=== PATIENT | male | born 1950 | race Native Hawaiian/Other Pacific Islander ===

== ENCOUNTER 2019-01-27 15:34 | Observation (INO) | payer OTHER ==
[2019-01-27] VITALS (8 sets, daily range): BP systolic 110–229; BP diastolic 70–123; TEMP 97.8–99.1
[~2019-01-27] VITALS: Ht 160 cm; Wt 70.9 kg
[2019-01-27 16:21] LABS: PLATELET COUNT 252 K/uL (142-355); POTASSIUM 3.7 mmol/L (3.6-5.2); SODIUM 139 mmol/L (136-145)
[2019-01-28] VITALS: BP 110/70; TEMP 98
[2019-01-28 00:23] VITALS: BP 165/81; TEMP 97.8; Ht 160 cm; Wt 70.9 kg
[2019-01-28 03:57] VITALS: BP 138/75; TEMP 97.5
[2019-01-28 04:52] LABS: PLATELET COUNT 187 K/uL (142-355)
[2019-01-28 05:20] LABS: POTASSIUM 3.7 mmol/L (3.6-5.2)
[2019-01-28 08:00] VITALS: BP 144/83; TEMP 97.7
== END 2019-01-28 10:48 | disposition home or self-care (01) ==
LOC: ED 15:34 → MED/SURG 18:00
PROVIDERS: Internal Medicine; ADMIT Family Medicine
DX: R07.89 Other chest pain (principal); R06.09 Other forms of dyspnea; I11.0 Hypertensive heart disease with heart failure
CPT/HCPCS: 36415; 80053; 81000; 82550; 84443; 84484; 85027; 85379; 93005; 94760; 96365; 96366; 96372; 96374; 99220; 99284; G0378; J0360; J1650

== ENCOUNTER 2021-12-13 19:02 | Observation (INO) | payer OTHER ==
[~2021-12-13] VITALS: Ht 160 cm; Wt 81.6 kg
[2021-12-13] VITALS (7 sets, daily range): BP systolic 118–148; BP diastolic 70–84; TEMP 98.7
[~2021-12-13 19:02] MED LIST: CARV12.5 PO; GLIPIZIDE 2.5 MG PO; ROSUVASTATIN CA10 MG PO
[2021-12-13 19:48] LABS: PLATELET COUNT 214 K/uL (142-355)
[2021-12-13 20:02] LABS: POTASSIUM 4.3 mmol/L (3.6-5.2)
--- NOTE | 2021-12-14 00:12 | NUR ---
PATIENT ADMITTED TO ROOM 1108 VIA WHEELCHAIR. PATIENT ABLE TO AMBULATE TO BED. DIAGNOSIS OF FAILURE TO THRIVE, WEAKNESS AND HEAT EXPOSURE. PATIENT DENIES DIZZINESS OR LIGHT HEADNESS, DOES AGREE HE IS WEAKER THAN USUAL. STONG EQUAL HAND SLUBBER TENDER, STRONG EQUAL PEDAL PUSHES. SALINE LOCK INTACT AND PATENT TO TOP OF LEFT HAND, NO SIGN OF INFILTRATED. CALL LIGHT WITHIN REACH.
[2021-12-14 00:35] VITALS: BP 132/81; TEMP 97.9; Ht 160 cm; Wt 81.6 kg
--- NOTE | 2021-12-14 02:30 | NUR ---
PATIENT RESTING QUIETLY, AWAKENS EASILY, DENIES COMPLAINTS. IVF NORMAL SALINE INFUSING TO TOP OF LEFT HAND WITH NO SIGNS OF INFILTRATE. CALL LIGHT WITH IN REACH.
[2021-12-14 04:00] VITALS: BP 96/62; TEMP 97.7
[2021-12-14 05:29] LABS: PLATELET COUNT 169 K/uL (142-355)
[2021-12-14 05:42] LABS: POTASSIUM 4.6 mmol/L (3.6-5.2)
--- NOTE | 2021-12-14 05:44 | NUR ---
PATIENT RESTING QUIETLY, EASILY AWAKENS, DENIES COMPLAINTS. IVF INFUSING TO LEFT HAND WITH NO SIGN OF INIFILTRATE. CALL LIGHT WITHIN REACH.
--- NOTE | 2021-12-14 07:45 | NUR ---
AM ASSESSMENT COMPLETED AT THIS TIME. PT ALERT AND ORIENTED X4. PT DENIES ANY C/O AT THIS TIME. S1/S2 HEARD, LUNG SOUNDS CLEAR THORUGH OUT BILAT. NO EDEMA NOTED. PT AMBULATED TO AND FROM BR. NS INFUSING AT 25 ML/HR AT THIS TIME WIHTOUT DIFFICULTY. BED LOW AND LOCKED, CALL LIGHT WITHIN REACH.
[2021-12-14 08:00] VITALS: BP 103/72; TEMP 97.6
--- NOTE | 2021-12-14 11:21 | NUR ---
Patient voiced an interest in being placed in LTC or either assisted living. Deburrer spoke with [facility] and they are private pay and the monthly cost is 3,000.00 to 3,200.00 dollars. Deburrer also spoke with Felicita Dany [phone] at [facility] and she said that she had two rooms and that the cost is 2,460.00 per month, but if the patient would come by on Saturday December 18, 2021 she would help him fill out a form to get assistance. She said if he moved in and paid the monthly amount if he qualified for the assistance that he would be credited what he paid. Deburrer spoke with the patient and let him know of the above and he said that he was not interested in going to [facility] because he did not know anyone there. hotshot superintendent asked him about LTC and where would he be intrested in song writer looking for placement. He said [facility], song writer told him that she did not think they had any bed available and what would be his second choice. He said no where. Deburrer clairified so if the [facility] does not have a bed you are not interested in any other places he said no. Deburrer called and spoke with [facility] and they do not have any opening at this time for LTC patients. also notifed of the above. Deburrer giving
--- NOTE | 2021-12-14 11:55 | NUR ---
Patients brother Kasi Desouza called policy writer sales and was inquiring about patient placement. Flame Cutting Machine Operator told Kasi that she had contacted assisted living and the cost and also let him know that if he would see Felicita Saenz on Saturday that she would help fill out paper work for assistance. Flame Cutting Machine Operator explained to Kasi that if patient was not willing to be placed at another facility that writers hands were tied. Flame Cutting Machine Operator inquired about him being able to stay with family and he said that patient was the middle child of 7 and that unfortunately that the ones he could live with had health issues and did not have time for the drama that patient and his son has. Flame Cutting Machine Operator assured Kasi that we would like to be able to assist him with placement, but that if he was not willing to go outside of the [facility] then all that we could do was to discharge him home.
[2021-12-14 12:00] VITALS: BP 166/84; TEMP 97.5
--- NOTE | 2021-12-14 13:05 | NUR ---
Patcher was informed that patient had a family member in the room with him and went down to speak with patient and find out what his plans were. During this time the brother Geovani asked what had marketing copywriter and the other brother Kasi talked about. mental retardation nurse told him that Kasi had said that the patient really did not have any family that he could live with because they all had health issues and were unable to care for him. Patcher told him that he had also stayed with family for a few weeks back in November and that the patient and his son basically had a toxic relationship. That the patient was short tempered and so was his son and they were alway screaming and yelling at each other. The brother Geovani said that it was him that the patient had lived with. The marketing copywriter asked why did he not continue to stay and he said that his could not wait on an extra person. So therefore they took him home. Patcher told him that she understood. Then the subject of moving his camper to a corner of one of the family members lands came up and Geovani said that was a possibility. The patient said that the camper did have wheels on it. Patcher told them to talk about things and let marketing copywriter know if that was a option. Patcher told them that she would check back with them after lunch. Geovani requested writers business card and marketing copywriter got him writers contact information. Patcher spoke with the MD to let her know the lastest possible plan and she inquired as to whether or not he had running water or electricity in the camper so marketing copywriter told her she would find out. Patcher entered the room and gave Geovani contact information and that when marketing copywriter was informed that the camper was to old and that it was not an opition to move it. Patcher then asked again if there was not anyone he could stay with and they said no. Then marketing copywriter asked patient what he wanted to do. Did he have a way to go to [place] in [place] to do paperwork or was he willing for marketing copywriter to search other LTC facilities, because earlier he said that he was not willing to go outside of [place] for placement. Thats when patient put both hands in the air and said send me to [place] or [place] I don't care. Patcher and MD who had entered the room during the conversation exited the room. With the patient being unsure of what he wants all that can be done is to discharge him home with the address and instructions on how to apply for assistance for housing.
--- NOTE | 2021-12-14 13:32 | NUR ---
Silo Filler took instructions on meeting with [facility] to the patient as well as placed one on the chart for nursing to see. Patients brother Geovani was still in the room visiting. Silo Filler explained the instructions to both. Geovani then said to the patient "why don't you just go home with me until we can meet with this lady Saturday". Patient said I don't want to be a burden then began crying. Geovani told him that he was not a burden. Silo Filler then asked patient would he like for her to start the process for getting him meals on wheels. Geovani said that the patient was never home for the meals to be delivered. Patient then said "do what you want to, I don't care". Silo Filler told him that she was just trying to help him because everyone falls on hard times and needs a little help. Silo Filler to Geovani and patient to discuss what their next step was and let story writer know. top tile decorator exited the room with patient laying in bed looking at the ceiling.
[2021-12-14 16:00] VITALS: BP 148/79; TEMP 98
--- NOTE | 2021-12-14 19:30 | NUR ---
PATIENT RESTING IN BED, WATCHING TV. DENIES DIZZINESS, SAYS HE IS STILL WEAK. IVF OF NORMAL SALINE INFUSING @ 50 ML/HR TO LEFT HAND WITH NO SIGN OF INFILTRATE. TELEMETRY SHOWING NORMAL SINUS RHYTHM ON MONITOR. INSTRUCTED TO CALL FOR ASSISTANCE, CALL LIGHT WITHIN REACH.
[2021-12-14 20:00] VITALS: BP 158/90; TEMP 97.6
--- NOTE | 2021-12-14 22:45 | NUR ---
PATIENT AWAKE, WATCHING TV, DENIES ANY COMPLAINTS. IVF INFUSING TO LEFT HAND, NO SIGN OF INFILTRATE. PATIENT STATES, "I'M GOING TO TRY AND REST." INSTRUCTED TO CALL FOR ASSITANCE, CALL LIGHT IN REACH.
[2021-12-15] VITALS: BP 140/74; TEMP 98.6
--- NOTE | 2021-12-15 02:00 | NUR ---
PATIENT RESTING, EYES CLOSED. AWAKENS EASILY, NO COMPLAINTS OF DIZZINESS OR PAIN. IVF OF NS INFUSING @ 50 ML/HR TO LEFT HAND, NO SIGN OF INFILTRATE. CALL LIGHT IN REACH.
[2021-12-15 04:00] VITALS: BP 150/74; TEMP 97.3
--- NOTE | 2021-12-15 04:10 | NUR ---
IN PATIENT ROOM FOR VITAL SIGNS, AWAKENS EASILY, NO COMPLAINTS VOICED. IVF INFUSING TO LEFT HAND, NO SIGN OF INFILTRATE. DENIES DIZZINESS OR PAIN. CALL LIGHT WITH IN REACH.
[2021-12-15 04:41] LABS: PLATELET COUNT 173 K/uL (142-355)
[2021-12-15 05:06] LABS: POTASSIUM 3.9 mmol/L (3.6-5.2)
--- NOTE | 2021-12-15 06:26 | NUR ---
PATIENT RESTING, WATCHING RV. NO COMPLAINTS VOICED. IVF OF NORMAL SALINE @ 50ML/HR INFUSING TO LEFT HAND, NO SIGN OF INFILTRATE. CALL LIGHT WITHIN REACH.
[2021-12-15 08:00] VITALS: BP 139/71; TEMP 98.1
--- NOTE | 2021-12-15 10:03 | NUR ---
PATIENT GIVEN DISCHARGE INSTRUCTIONS WITH VERBAL UNDERSTANDING NOTED. PATIENT INSTRUCTED TO CONTINUE TO TAKE ALL HOME MEDICATIONS. PATIENT EDCUATED TO TRY AND STAY IN COOL AREAS WHEN THE WEATHER IS HOT OUTSIDE AND KEEP HYDRATED ESPECIALLY IF WALKING LONG DISTANCES. PATIENT WILL FOLLOW UP WITH ON 12/25/21 AT 1000. PATIENTS IV REMOVED WITH TIP INTACT AND SECURED WITH TAPE. NO SIGNS OF PHLEBITIS OR INFILTRATION NOTED. PATIENT TAKEN VIA WHEELCHAIR TO POV IN NO ACUTE DISTRESS.
== END 2021-12-15 10:03 | disposition home or self-care (01) ==
LOC: ED 19:02 → MED/SURG 23:30
PROVIDERS: ADMIT Emergency Medicine Emergency Medical Services; ATTEND Internal Medicine
DX: T67.1XXA Heat syncope, initial encounter (principal); E86.0 Dehydration; R62.7 Adult failure to thrive; T67.5XXA Heat exhaustion, unspecified, initial encounter; X58.XXXA Exposure to other specified factors, initial encounter; I25.10 Atherosclerotic heart disease of native coronary artery without angina pectoris; I11.9 Hypertensive heart disease without heart failure; E78.49 Other hyperlipidemia; N17.8 Other acute kidney failure; R53.1 Weakness; E11.65 Type 2 diabetes mellitus with hyperglycemia
CPT/HCPCS: 36415; 80053; 81002; 82948; 83735; 84484; 85027; 87635; 93005; 96360; 96361; 96374; 99220; 99284; G0378; U0003